=== PATIENT | female | born 1955 | race Caucasian/White ===

== ENCOUNTER → 2017-01-09 | Outpatient (CLI) | payer OTHER ==
[~2017-01-09] MED LIST: ALAVERT10 MG PO; ASPIRIN 81MG TA81 MG PO; BIRTH CONTROL PILL PO; CALCIUM CARBONA1 TAB PO; DIOVAN HCT 12.51 TA2 PO; FIBER LAXATIVE500 MG PO; LEXAPRO 10 MG T10 MG PO; LORTAB 5/500 501 TAB PO; ONE DAILY ESSEN1 TA2 PO; SIMVASTATIN10 MG PO
== END ==
LOC: SL 19:59
DX: I10 Essential (primary) hypertension (principal); R06.83 Snoring

== ENCOUNTER → 2017-01-10 | Outpatient (CLI) | payer OTHER ==
[2017-01-10 06:04] LABS: BUN 14 mg/dL (7-18); GFR (ESTIMATED) 73 ML/MIN (59-)
== END ==
LOC: LAB 05:25
PROVIDERS: Internal Medicine
DX: I35.1 Nonrheumatic aortic (valve) insufficiency (principal); R06.09 Other forms of dyspnea; I10 Essential (primary) hypertension; E78.5 Hyperlipidemia, unspecified

== ENCOUNTER → 2017-01-15 | Outpatient (CLI) | payer OTHER ==
--- NOTE | 2017-01-16 11:41 | RADIOLOGY REPORT PS360 ---
CARDIOLITE SPECT MYOCARDIAL PERFUSION SCAN, REST AND STRESS: EXERCISE STRESS [facility] REVIEW QGS EF AND WALL MOTION EVALUATION: QPS - PERFUSION EVALUATION HISTORY: Chest pain, SOB, Fatigue, HTN DOSE: 10.91 mCi technetium 99m mibi intravenously at rest followed by 32.7 mCi technetium 99m mibi following the intravenous ministration of 0.4 mg of Lexiscan. Resting blood pressure is 125/71. Stress blood pressure 112/65. FINDINGS: Ejection fraction is calculated to be 74%. Stress images reveal decreased activity in the anterior wall with no change with rest. Gated images calculated ejection fraction of 74% with normal wall motion. IMPRESSION: Clinical correlation is advised that this test is most consistent with breast attenuation. Normal ejection fraction normal wall motion.
--- NOTE | 2017-01-16 11:41 | RADIOLOGY REPORT PS360 ---
CARDIOLITE SPECT MYOCARDIAL PERFUSION SCAN, REST AND STRESS: EXERCISE STRESS [facility] REVIEW QGS EF AND WALL MOTION EVALUATION: QPS - PERFUSION EVALUATION HISTORY: Chest pain, SOB, Fatigue, HTN DOSE: 10.91 mCi technetium 99m mibi intravenously at rest followed by 32.7 mCi technetium 99m mibi following the intravenous ministration of 0.4 mg of Lexiscan. Resting blood pressure is 125/71. Stress blood pressure 112/65. FINDINGS: Ejection fraction is calculated to be 74%. Stress images reveal decreased activity in the anterior wall with no change with rest. Gated images calculated ejection fraction of 74% with normal wall motion. IMPRESSION: Clinical correlation is advised that this test is most consistent with breast attenuation. Normal ejection fraction normal wall motion.
== END ==
LOC: RAD 06:33
DX: I35.1 Nonrheumatic aortic (valve) insufficiency (principal); R06.09 Other forms of dyspnea; I10 Essential (primary) hypertension; E78.5 Hyperlipidemia, unspecified
CPT/HCPCS: A9502; J2785